=== PATIENT | female | born 1945 | race Caucasian/White ===

== ENCOUNTER 2016-10-12 09:48 | Day surgery (SDC) | payer MEDICARE, OTHER ==
--- NOTE | ~2016-10-12 | EGD ---
EGD REPORT [facility] [address] [address] NAME: COOKIE SAINZ : [birth year] STATUS : REG [facility]#: [id number] AGE: 71 ADM/REG DATE : 10/12/16 MR#: [id number] REPORT SERV DATE: 10/12/16 DICTATED BY: JAYNA CRAWFORD DATE: 10/12/16 REPORT STATUS : Draft [facility] BY: [facility] DATE: 10/12/16 Pulmonology Patient Name: Cookie Sainz Procedure Date: 10/12/2016 1:33 PM Date of : 1945 Attending MD: JAMES CRAWFORD MD Procedure Date No Time: 10/12/2016 Procedure: Bronchoscopy Indications: Diffuse GGO infiltrates Providers: JAMES CRAWFORD MD Referring MD: HUANG AUSTIN MD Medicines: Lidocaine 2% 20 mL Complications: No immediate complications Procedure: Pre-Anesthesia Assessment: - A History and Physical has been performed. Patient meds and allergies have been reviewed. The risks and benefits of the procedure and the sedation options and risks were discussed with the patient. All questions were answered and informed consent was obtained. Patient identification and proposed procedure were verified prior to the procedure by the physician and the nurse in the procedure room. Mental Status Examination: alert and oriented. Respiratory Examination: poor air movement. CV Examination: normal and RRR, no murmurs, no S3 or S4. ASA Grade Assessment: IV - A patient with severe systemic disease that is a constant threat to life. After reviewing the risks and benefits, the patient was deemed in satisfactory condition to undergo the procedure. The anesthesia plan was to use general anesthesia. Immediately prior to administration of medications, the patient was re-assessed for adequacy to receive sedatives. The heart rate, respiratory rate, oxygen saturations, blood pressure, adequacy of pulmonary ventilation, and response to care were monitored throughout the procedure. The physical status of the patient was re-assessed after the procedure. After obtaining informed consent, the Bronchoscope was introduced through the mouth, via laryngeal mask airway and advanced to the tracheobronchial tree. The procedure was accomplished without difficulty. The patient tolerated the procedure well. Findings: The laryngeal mask airway is in normal position. The vocal cords move normally with breathing. The subglottic space is normal. The trachea is of normal caliber. The anthony is sharp. The tracheobronchial tree was EGD REPORT [address] [place]. [address] NAME: COOKIE SAINZ : [birth year] STATUS : REG [facility] PAT#: [id number] AGE: 71 ADM/REG DATE : 10/12/16 MR#: [id number] REPORT SERV DATE: 10/12/16 DICTATED BY: JAYNA CRAWFORD DATE: 10/12/16 REPORT STATUS : Draft TRANSCRIBED BY: [employer] [facility] DATE: 10/12/16 examined to at least the first subsegmental level. Bronchial mucosa and anatomy are normal; there are no endobronchial lesions. There are thick yellow secretions. Bronchoalveolar lavage was performed in the right middle lobe of the lung and sent for cell count, cytology, bacterial culture, viral smears \T\ culture, and fungal and AFB analysis. 180 mL of fluid were instilled. 30 mL were returned. The return was cellular. Fluoroscopically guided transbronchial brushings were obtained in the right middle lobe of the lung and sent for routine cytology and bacterial, AFB and fungal analysis. Two samples were obtained. Transbronchial biopsies were performed in the right upper lobe, in the right middle lobe and in the right lower lobe of the lung using forceps and sent for histopathology examination. The procedure was guided by fluoroscopy. Eight biopsy passes were performed. Four biopsy samples were obtained. Impression: - The examination was normal. - Bronchoalveolar lavage was performed. - Fluoroscopically guided transbronchial brushings were obtained. - Transbronchial lung biopsies were performed. Recommendation: - Await test results. - Chest X-ray post-procedure. - The patient was advised to call or return to the clinic if there are signs or symptoms suggesting a complication/adverse reaction from the procedure. - Follow up with referring physician. Attending Participation: I personally performed the entire procedure. JAMES CRAWFORD MD 10/12/2016 2:19 PM This report has been signed electronically. Number of Addenda: 0 Note Initiated On: 10/12/2016 1:33 PM [address] [place] [address]
[~2016-10-12 09:48] MED LIST: AMB10 PO; ASAB PO; ATV1 PO; BIOTIN5 MG; BIOTIN5 MG PO; C1; C1 PO; C25 PO; CEFT5 PO; CELEXA20 PO; CENTRUM PO; CENTRUM TAB1 TAB PO; CLARIT10 PO; CO Q-10100 MG PO; CO-Q-10 PO; CORDARONE PO; COUMADIN PO; FAMCICLOVIR500 MG PO; FEMARA PO; FERROUS SULF324 MG PO; FERROUS SULF325 M1 PO; FISH-EPA1000 MG PO; FLUCON1; FLUCON150; GABITRIL2 MG OR; GERITOL COMPLETE PO; GERITOL PO; HARD NAILS OR; HUMI PO; HYDROCODONE PO; Hydrocodone PO; IPRA17AE INH; JANTOVEN1 MG PO; JANTOVEN2.5 MG PO; JANUMET1 TA1 PO; KCL20UDL PO; KDUR10; KDUR10 PO; KDUR20 PO; KLOR-CON 1010 MEQ PO; KLOR-CON M1010 MEQ PO; L40 PO; L80 PO; LANTUS FOR SC; LANTUS SC; LEVAQUIN5T PO; LEVOTHYROXIN50 MCG PO; LEVOTHYROXIN75 MCG PO; LEVOTHYROXIN88 MCG PO; LEXAPRO10 PO; LISINOPRIL40 MG PO; LOP25 PO; LOP50 PO; LORTAB10 PO; MICRO-K10 MEQ PO; MOMUD PO; MULTIPLE VIT PO; MULTIVIT/MIN PO; MVI PO; NASONEX NAS; NEUR300; NEUR300 PO; NORCO1 TA1 PO; NORCO1 TA2 PO; NORCO1 TAB PO; NORV25 PO; NORV5 PO; NYS500UDL; OXYCON20; OXYCON20 PO; OXYCONTIN15 MG PO; P20 PO; P5; PACERONE100 MG PO; PERCOCET1 TA4 PO; PLAVIX PO; PRAVACHOL40 MG PO; PRILO PO; PRIN10 PO; PRIN20 PO; PROTONIX PO; RANITIDINE300 MG PO; SOLIFENACIN PO; STARLIX60 PO; SYN.025B; SYN075 PO; V5 PO; VITAMIN D31000 UNIT PO; XOPENEX HFA INH; XOPENEX0.63 MG INH; ZANTAC 150 PO; ZANTAC 75 PO; ZANTAC150 MG PO; ZANTAC300 MG; ZESTRIL20 MG PO; ZOL50 PO; ZYRTEC ALLGY10 MG PO
[2016-10-12 10:24] LABS: BASOPHILS 0.3 %; BASOPHILS ABSOLUTE 0.02 10/3/uL (0.0-0.16); EOSINOPHILS 2.8 %; EOSINOPHILS ABSOLUTE 0.18 10/3/uL (0.0-0.53); HEMATOCRIT 37.9 % (36.0-48.0); HEMOGLOBIN 12.3 g/dL (12.0-16.0); IMMATURE GRANULOCYTES 0.2 %; IMMATURE GRANULOCYTES ABSOLUTE 0.01 10/3/uL (0.0-0.11); LYMPHOCYTES 15.6 %; LYMPHOCYTES ABSOLUTE 1.02 10/3/uL (0.67-4.30); MEAN CORPUS HGB CONC 32.5 g/dL (32.0-36.0); MEAN CORPUSCULAR HEMOGLOB 29.5 pg (26.0-34.0); MEAN CORPUSCULAR VOLUME 90.9 fL (80-100); MEAN PLATELET VOLUME 10.4 fL (9.2-13.0); MONOCYTES 7.8 %; MONOCYTES ABSOLUTE 0.51 10/3/uL (0.21-1.20); NEUTROPHILS 73.3 %; PLATELET COUNT 227 10/3/uL (150-400); RBC DISTRIBUTION WIDTH 14.3 % (12.0-16.0); RED CELL COUNT 4.17 10/6/uL (4.0-5.6); WHITE BLOOD CELLS 6.5 10/3/uL (4.5-10.5)
[2016-10-12 10:25] LABS: MANUAL DIFF NO %
[2016-10-12 10:37] LABS: INTERNATIONAL NORMAL RATI 1.3 UNITS (-); PARTIAL THROMBO TIME 28.1 SEC (22.5-37.2)
[2016-10-12 10:38] LABS: BUN (BLOOD UREA NITROGEN) 21 MG/DL (6-23); CALCIUM, SERUM 8.7 MG/DL (8.5-10.4); CHLORIDE, SERUM 105 MMOL/L (96-112); CO2 (CARBON DIOXIDE) 32 MMOL/L (24-34); CREATININE 1.29 MG/DL (0.55-1.02); GFR AFRICAN AMERICAN 48 ML/MIN (>=60); GFR NON AFRICAN AMERICAN 41 ML/MIN (>=60); GLUCOSE, SERUM 90 MG/DL (60-99); POTASSIUM, SERUM 3.4 MMOL/L (3.5-5.3); PROTIME (NOT ORD) 15.7 SEC (12.0-14.5); SODIUM, SERUM 143 MMOL/L (135-148)
[2016-10-12 17:30] LABS: BD FL LYMPH (NOT ORD) 4 %; BD FL SOURCE (NOT ORD) BAL; BF BASO (NOT OF) 0 %; BF LARGE MONONUCLEAR 85 %; BF TOTAL CELL CT (NOT ORD 410 /MM3; BODY FLUID EOS (NOT ORD) 0 %; BODY FLUID RBC (NOT ORD) 2000 /MM3; BODY FLUID SEG (NOT ORD) 11 %
[2016-11-27] MEDS ORDERED: ZOL100 PO (18:44)
[2016-11-27] MEDS ORDERED: ATROVENTUD INH (18:45)
[2016-11-27] MEDS ORDERED: PACERONE100 MG PO (18:45)
[2016-11-27] MEDS ORDERED: NORV5 PO (18:45)
[2016-11-27] MEDS ORDERED: IPRA17AE INH (18:45)
[2016-11-27] MEDS ORDERED: BIOTIN5 MG PO (18:46)
[2016-11-27] MEDS ORDERED: C1 PO (18:46)
[2016-11-27] MEDS ORDERED: CO Q-10100 MG PO (18:46)
[2016-11-27] MEDS ORDERED: L40 PO (18:47)
[2016-11-27] MEDS ORDERED: GERITOL COMPLETE PO (18:47)
[2016-11-27] MEDS ORDERED: FERROUS SULFATE 324 PO (18:47)
[2016-11-27] MEDS ORDERED: NEUR300 PO (18:47)
[2016-11-27] MEDS ORDERED: STARLIX60 PO (18:48)
[2016-11-27] MEDS ORDERED: SYN075 PO (18:48)
[2016-11-27] MEDS ORDERED: NORCO1 TAB PO (18:48)
[2016-11-27] MEDS ORDERED: OXYCON20 PO (18:49)
[2016-11-27] MEDS ORDERED: KLOR-CON M1010 MEQ PO (18:49)
[2016-11-27] MEDS ORDERED: PRAVACHOL40 MG PO (18:49)
[2016-11-27] MEDS ORDERED: ZYRTEC ALLGY10 MG PO (18:50)
[2016-11-27] MEDS ORDERED: ZANTAC300 MG PO (18:50)
== END 2016-10-12 17:37 | disposition home or self-care (01) ==
LOC: DMU 09:48
PROVIDERS: Anesthesiology; Internal Medicine
PROC: 0B948ZX Drainage of Right Upper Lobe Bronchus, Via Natural or Artificial Opening Endoscopic, Diagnostic (ICD-10-PCS; principal; 2016-10-12 11:00)
PROC: 0B9D8ZX Drainage of Right Middle Lung Lobe, Via Natural or Artificial Opening Endoscopic, Diagnostic (ICD-10-PCS; 2016-10-12 11:00)
PROC: 0BBD8ZX Excision of Right Middle Lung Lobe, Via Natural or Artificial Opening Endoscopic, Diagnostic (ICD-10-PCS; 2016-10-12 11:00)
PROC: 0BBC8ZX Excision of Right Upper Lung Lobe, Via Natural or Artificial Opening Endoscopic, Diagnostic (ICD-10-PCS; 2016-10-12 11:00)
DX: R93.8 Abnormal findings on diagnostic imaging of other specified body structures (principal); J44.9 Chronic obstructive pulmonary disease, unspecified; R09.02 Hypoxemia; N18.9 Chronic kidney disease, unspecified; I25.10 Atherosclerotic heart disease of native coronary artery without angina pectoris; I12.9 Hypertensive chronic kidney disease with stage 1 through stage 4 chronic kidney disease, or unspecified chronic kidney disease; G47.31 Primary central sleep apnea; R91.8 Other nonspecific abnormal finding of lung field; Z88.5 Allergy status to narcotic agent; Z88.1 Allergy status to other antibiotic agents; I25.2 Old myocardial infarction; F41.9 Anxiety disorder, unspecified; D64.9 Anemia, unspecified; I48.91 Unspecified atrial fibrillation; E11.22 Type 2 diabetes mellitus with diabetic chronic kidney disease; E03.9 Hypothyroidism, unspecified; Z98.890 Other specified postprocedural states; Z79.899 Other long term (current) drug therapy
CPT/HCPCS: 71010; 80048; 82962; 85025; 85610; 85730; 87015; 87070; 87102; 87107; 87116; 87205; 88112; 88305; 89051; 93005; A9270-GY; J2250; J3010